=== PATIENT | female | born 1990 | race African-American/Black ===

== ENCOUNTER 2017-03-30 09:21 | Emergency (ER) | payer MEDICAID ==
[~2017-03-30] VITALS: Ht 172.7 cm; Wt 77.0 kg
[2017-03-30 09:25] VITALS: BP 117/71
[2017-03-30] MEDS ORDERED: LEVO1TBD8 PO (09:29)
== END 2017-03-30 10:59 | disposition home or self-care (01) ==
LOC: ER 10:00
DX: J02.9 Acute pharyngitis, unspecified (principal)
CPT/HCPCS: 99282

== ENCOUNTER 2017-09-27 20:13 | Emergency (ER) | payer MEDICAID ==
[~2017-09-27] VITALS: Ht 172.7 cm; Wt 78.0 kg
[~2017-09-27 20:13] MED LIST: LEVO1TBD8 PO
[2017-09-27] MEDS ORDERED: FAMOTIDINE 20MG/2ML VIAL IV STA (20:27)
[2017-09-27] MEDS ORDERED: ONDANSETRON HCL 4MG/2ML VIAL IV STA (20:27)
[2017-09-27 20:50] LABS: CLARITY URINE CLEAR (CLEAR); COLOR URINE YELLOW (YELLOW); KETONES URINE NEGATIVE (NEGATIVE); LEUKOCYTE ESTERASE URINE NEGATIVE (NEGATIVE); NITRITE URINE NEGATIVE (NEGATIVE); OCCULT BLOOD URINE NEGATIVE (NEGATIVE); PROTEIN URINE NEGATIVE (NEGATIVE); SPECIFIC GRAVITY URINE 1.028 (1.005-1.030)
[2017-09-27 21:32] LABS: BASOPHILS % 0.7 % (0.0-2.0); EOSINOPHILS % 1.5 % (0.0-5.0); HEMATOCRIT. 38.6 % (36.0-48.0); HEMOGLOBIN. 13.4 g/dL (12.0-16.0); LYMPHOCYTES % 37.6 % (20.0-50.0); MEAN CORPUSCULAR HEMOGLOBIN 29.7 pg (28.0-32.0); MEAN CORPUSCULAR VOLUME 85.2 fL (81.0-99.0); MEAN PLATELET VOLUME 9.2 fl (7.4-10.4); MONOCYTES % 5.9 % (2.0-8.0); NEUTROPHILS % 54.3 % (40.0-76.0); PLATELET 181 x1000/uL (130-400); RED BLOOD CELL COUNT 4.52 mill/uL (4.2-5.4); RED CELL DISTRIBUTION WIDTH 12.5 % (11.6-14.6)
[2017-09-27 21:36] LABS: INR 1.1; PROTHROMBIN TIME 11.2 sec (9.4-11.6)
[2017-09-27 21:40] LABS: CHLORIDE 105 mEq/L (98-107)
[2017-09-28] MEDS ORDERED: FAMOTIDINE 20MG TABLET PO ONE (01:30)
[2017-09-28] MEDS ORDERED: ONDANSETRON 4MG ODT PO ONE (01:30)
[2017-09-28 03:18] VITALS: BP 115/70
== END 2017-09-28 03:21 | disposition home or self-care (01) ==
LOC: ER 20:34
DX: K80.20 Calculus of gallbladder without cholecystitis without obstruction (principal)
CPT/HCPCS: 36415; 76700; 80053; 81003; 81025; 83690; 85025; 85610; 99285; Q0162